=== PATIENT | male | born 1955 | race Caucasian/White ===

== ENCOUNTER 2017-11-10 22:48 | Emergency (ER) | payer BC ==
--- NOTE | 2017-11-10 23:16 | EDM.PDOC ---
ED HPI GENERAL MEDICAL PROBLEM - General Chief Complaint: Head Injury Stated Complaint: fall Time Seen by Provider: 11/10/17 23:04 Source of Information: Reports: Patient History Limitations: Reports: No Limitations - History of Present Illness INITIAL COMMENTS - FREE TEXT/NARRATIVE: 62-year-old male presents the ED after tripping and falling backwards into his garage at home tonight. He states he had an objects in his arms was walking backwards into the garage and tripped over batteries that were on the floor. This caused him to fall backwards with a direct blow to the occipital aspect of his head on the concrete floor. He states his vision became blackened and DM for a period of time but he did not lose consciousness completely. His sisters became aware of his injuries since he lives alone he was coaxed into coming to the ED for definitive assessment. He has a headache but he has no nausea vomiting. He does not feel offkilter or off balance. He states he has full range of motion of his neck. He has some mild minimal pain to his mid back and right posterior buttock and thigh area. He believes is where he landed on the Battery post. No injuries occurred approximately 1930 hrs. this evening. Onset: Today Onset Date: 11/10/17 Onset Time: 19:30 Duration: Hour(s): Location: Reports: Head, Back, Other (Right buttock). Denies: Face, Neck, Chest , Abdomen Quality: Reports: Ache Severity: Moderate Improves with: Reports: Rest Worsens with: Reports: Movement Context: Reports: Trauma (Tripped and fell backwards in his garage striking his head hard on the concrete floor.) Associated Symptoms: Reports: Headaches, Other (Aching posterior right buttock and thigh.). Denies: Confusion, Chest Pain, Cough, cough w sputum, Diaphoresis , Fever/Chills (Mild), Loss of Appetite, Malaise, Nausea/Vomiting, Rash, Seizure , Shortness of Breath, Syncope, Weakness Treatments LIABILITY CLAIMS REPRESENTATIVE: Reports: Other (see below) (None.) Head Pain Score (Numeric/FACES): 2 Bilateral Leg Pain Score (Numeric/FACES): 3 - Related Data Allergies Allergy/AdvReac Type Severity Reaction Status Date / Time No Known Allergies Allergy Verified 11/10/17 22:56 Home Meds: Home Meds . [No Known Home Meds] 11/10/17 [History] Past Medical History HEENT History: Reports: Impaired Vision - Past Surgical History GI Surgical History: Reports: Hernia Repair/Other, Other (See Below) Other GI Surgeries/Procedures: triple hernia repair Social & Family History - Tobacco Use Smoking Status *Q: Never Smoker - Caffeine Use Caffeine Use: Reports: Soda - Recreational Drug Use Recreational Drug Use: No - Living Situation & Occupation Living situation: Reports: Occupation: Employed ED ROS GENERAL - Review of Systems Review Of Systems: See Below Constitutional: Reports: No Symptoms HEENT: Reports: Glasses. Denies: Contact Lenses, Dental Pain, Ear Pain, Nosebleed, Nose Pain, Rhinitis, Sinus Problem, Throat Swelling Respiratory: Reports: No Symptoms Cardiovascular: Reports: No Symptoms Endocrine: Reports: No Symptoms GI/Abdominal: Reports: No Symptoms : Reports: No Symptoms Musculoskeletal: Reports: No Symptoms Skin: Reports: No Symptoms Neurological: Reports: No Symptoms Psychiatric: Reports: No Symptoms Hematologic/Lymphatic: Reports: No Symptoms ED EXAM, HEAD INJURY - Physical Exam Exam: See Below Exam Limited By: No Limitations General Appearance: Alert, WD/WN, No Apparent Distress Head: Other (Does have tenderness to the left occipital scalp with a 2.5 cm small hematoma. No open abrasions or lacerations) Nexus Criteria: No: Posterior, Midline Cervical Tenderness, Evidence of Intoxication, Altered Level of Consciousness, Focal Neurological Deficit, Painful Distraction Injuries Eyes: Bilateral Eye: Normal Inspection, PERRL Ears: Normal TMs Throat/Mouth: Other Neck: Non-Tender (No injury to his tongue.), Full Range of Motion, Normal Alignment, Normal Inspection. No: Abnormal Alignment, Limited Range of Motion, Muscle Spasm Respiratory: No Respiratory Distress, Lungs Clear, Normal Breath Sounds Cardiovascular: Normal Peripheral Pulses, Regular Rate, Rhythm, No Edema, No Murmur, No Rub GI/Abdominal Exam: Normal Bowel Sounds, Soft, Non-Tender, No Organomegaly Back Exam: Other (Few superficial abrasions to his left mid back but no bony deformities or tenderness) Extremities: Normal Inspection, Other (Has some superficial abrasions and swelling to the posterior hamstrings right posterior thigh just below his buttock crease.) Neurologic: No Motor/Sensory Deficits, Alert, Normal Mood/Affect, Oriented x 3 - Lore Coma Score Best Eye Response (Lore): (4) Open Spontaneously Best Verbal Response (Lore): (5) Oriented Best Motor Response (Lore): (6) Obeys Commands Lore Total: 15 Course - Vital Signs Last Recorded V/S: Last Vital Signs Temp 37.3 C 11/10/17 22:58 Pulse 69 11/10/17 22:58 Resp 18 11/10/17 22:58 BP 154/102 H 11/10/17 22:58 Pulse Ox 97 11/10/17 22:58 - Orders/Labs/Meds Orders: Active Orders 24 hr Category Date Time Status Head wo Cont [CT] Stat Exams 11/10/17 23:14 Taken - Radiology Interpretation Free Text/Narrative:: 62-year-old male attends the ED after tripping and falling backwards in his carotids this evening. States he was walking backwards with his hands phone tripped over a batteries that were on the floor. This caused him to fall backwards and he struck the back of his head hard on the concrete floor. He did not lose consciousness. Injuries occurred approximately 4 hours prior to coming to the ED. He has a headache but he has no nausea vomiting no neurological deficit. His sister and coaxed him into coming to the ED due to concerns about of closed head injury. He is currently living alone. Patient was found of a few other scrapes and contusions to his posterior right thigh and his back but no serious bony injuries were identified. Plan CT head will be done due to the nature of his trauma. The patient is not on any blood thinners. - Re-Assessments/Exams Free Text/Narrative Re-Assessment/Exam: 11/10/17 23:55: CT of his head is within normal limits in terms that she has no intracranial bleeding or skull fracture or midline shift. Patient does have extensive pansinusitis involving the ethmoid and sphenoids and maxillary sinuses. He is aware of this. Patient reassured at this time no aggressive treatment is required. He prefers not to use Tylenol or Motrin. He will experience increased stiffness and soreness over the next 24 hours. Departure - Departure Time of Disposition: 23:53 Disposition: Home, Self-Care 01 Condition: Fair Clinical Impression: Closed head injury without concussion Qualifiers: Encounter type: initial encounter Qualified Code(s): S09.90XA - Unspecified injury of head, initial encounter - Discharge Information Instructions: Head Injury, Adult Referrals: Fer Riggins Jr, MD [Primary Care Provider] - Forms: ED Department Discharge Additional Instructions: Evaluation the emergency room today in regards to a fall that you sustained at home. Tripped and fell backward striking the back of her head hard on concrete floor. Dazed but no true loss of consciousness. Subsequent mild headache. Contusion to the upper aspect of the occipital skull. Mild hematomas palpable left side. CT scan of the brain was carried out and does not reveal any cracks within the skull and no intracranial bleeding or mass effect. Clinically there is no evidence that you have suffered a concussion. Expect to develop increased stiffness and soreness in her neck and low back over the next 24-48 hours from falling and jerking of the ligaments and muscles. May use Tylenol or Motrin as needed for pain relief. Follow-up with personal care physician if any further problems occur. - My Orders Last 24 Hours: My Active Orders 11/10/17 23:14 Head wo Cont [CT] Stat - Assessment/Plan Last 24 Hours: My Active Orders 11/10/17 23:14 Head wo Cont [CT] Stat
--- NOTE | 2017-11-11 07:28 | CT ---
Head CT Technique: Multiple axial sections through the brain were obtained. Intravenous contrast was not utilized. Comparison: No previous intracranial imaging is available. Findings: Ventricles along with basal cisterns and sulci over the convexities are within normal limits for the patient's age. No abnormal parenchymal densities are seen. No evidence of intracranial hemorrhage. No midline shift or mass effect is seen. Bone window settings were reviewed which show no acute calvarial abnormality. Rounded soft tissue densities are seen within the maxillary sinuses as well as mucosal thickening. Diffuse soft tissue density is noted within the nasal cavity as well as prominent mucosal thickening within the ethmoid sinuses and right frontal sinus. Minimal mucosal thickening noted within the sphenoid sinus. Impression: 1. Prominent sinus findings as well as soft tissue density within the nasal cavity. Findings raise the possibility of nasal polyps as well as maxillary retention cysts and chronic sinusitis. 2. No acute intracranial abnormality is seen. No acute skull fracture is identified. Agree with preliminary report issued by [facility] on 11/11/17, 12:56 AM Diagnostic code #3
== END 2017-11-10 23:59 | disposition home or self-care (01) ==
LOC: JD.ED 22:48
DX: S09.90XA Unspecified injury of head, initial encounter (principal); S70.311A Abrasion, right thigh, initial encounter; W01.0XXA Fall on same level from slipping, tripping and stumbling without subsequent striking against object, initial encounter
CPT/HCPCS: 70450; 70450-26; 99283; 99284-25